=== PATIENT | female | born 1990 ===

== ENCOUNTER 2024-03-04 09:11 | Emergency (ER) | payer OTHER, SELFPAY ==
[2024-03-04 09:24] VITALS: BP 137/108
--- NOTE | 2024-03-04 10:45 | ED.GENMED ---
History of Present Illness
General
Chief Complaint: Flank Pain
Source: patient
Exam Limitations: none
Time Seen by Provider: 03/04/24 10:30
Nursing documentation reviewed up to this point in time: agreed with
History of Present Illness
History of Present Illness:
34-year-old female presenting to the emergency department with intermittent left-sided flank pain over the past few days. Has a history of kidney stones feels similar to previous. Associated nausea no vomiting no fevers. No significant urinary
changes.
Review of Systems
Review of Systems
Allergies reviewed?: Yes
All Other Systems: ROS reviewed and negative except as documented in HPI and ROS
Phy Exam
Physical Exam
Physical Exam:
GENERAL: Alert , in no apparent distress
EYE: pupils equal and reactive
NECK: Supple, no significant adenopathy.
ENT: o/p clr, mmm.
CARDIAC: Regular rate and rhythm .
LUNGS: Clear breath sounds bilaterally, no acute respiratory distress, no wheezes/rales/rhonchi
ABDOMEN: Soft, without focal tenderness, no r/g, no cvat
NEUROLOGICAL: Alert and oriented, no focal neuro deficits
SKIN: Warm and dry, skin intact.
MUSCULOSKELETAL: No edema, well perfused.
PSYCH: Normal and appropriate interaction.
Course
Orders/Labs/Results
Orders:
Orders
03/04/24 10:32
Test Result ONCE
03/04/24 10:44
CT Abd/pel Without Iv Or Oral Urgent
Comment:
Reason For Exam: left flank
03/04/24 11:22
Complete Blood Count/With Diff Urgent
Comprehensive Metabolic Panel Urgent
HCG, Serum Qualitative Screen Urgent
03/04/24 12:56
Urinalysis Reflex To Culture Urgent
Date Specimen was Collected: 03/04/24
Time Specimen was Collected: 12:54
Urine Microscopic Reflex Cult Urgent
Abnormal Lab Results
03/04/24 03/04/24
11:22 12:56
BUN 18 H mg/dl
(7-17)
Total Bilirubin 1.5 H mg/dl
(0.2-1.3)
Leukocyte Esterase Rfl Trace A
(Negative)
03/04/24 11:22
03/04/24 11:22
Vital Signs
Initial and Last Documented VS:
Initial Vital Signs
Temp Pulse Resp BP Pulse Ox
98.3 F 73 20 137/108 99
03/04/24 09:24 03/04/24 09:24 03/04/24 09:24 03/04/24 09:24 03/04/24 09:24
Last Documented Vital Signs
Temp Pulse Resp BP Pulse Ox
98.3 F 61 16 92/56 98
03/04/24 09:24 03/04/24 12:45 03/04/24 12:45 03/04/24 12:45 03/04/24 12:45
MDM/Problems Addressed
MDM/Problems Addressed:
34-year-old female presenting to the emergency department today with concerns of left-sided flank pain that feels similar to previous kidney stones. Here in no distress vital signs are normal. No reproducible discomfort. Plan for CT scan for
further assessment. CT scan without evidence of active stone labs unremarkable urinalysis without signs of infection. No evidence of any emergent pathology at this time stable for outpatient management return precautions given.
*Critical Care Note
Total Time (30-74mins, 75-104mins- exclusive of procedures): Not Applicable
ED Attending Note
-
Portions of this chart may have been created with voice recognition software.� Occasional wrong word or��sound alike� substitutions may have occurred due to the inherent limitations of voice recognition software.
Discharge Plan
Departure
Patient Disposition: Home (Routine Discharge)
Date of Disposition: 03/04/24
Time of Disposition: 13:19
Patient with high blood pressure during this ER visit?: No
Condition: Good
Covid-19: Not Applicable
Discharge Problem:
Acute flank pain
Instructions: Flank Pain (DC)
Prescriptions:
No Action
ferrous sulfate 325 mg (65 mg iron) Tablet
325 mg PO DAILY
prenat.vits,joellen,wnf-sbns-scfin Tablet
1 tab PO DAILY
acetaminophen 325 mg Tablet
650 mg PO Q4HPRN PRN (Reason: mild pain) Qty: 0 0RF
ibuprofen 600 mg Tablet
600 mg PO Q6HPRN PRN (Reason: cramps) Qty: 0 0RF
Referrals:
Juanjo Baeza MD [Family Provider] -
Activity Restrictions/Additional Instructions:
You came to the emergency department today with concerns of flank pain. Here you had a reassuring assessment. Please follow closely as an outpatient with your primary care doctor. Return to the emergency department for any worsening, new or
concerning symptoms.
Interventions
Interventions:
*Risk Screen - Suicide Last Done: 03/04/24 09:24
*General Assessment Last Done: 03/04/24 09:24
*Neglect/Abuse Screening Last Done: 03/04/24 09:24
*ED COVID-19 Vaccine History Last Done: 03/04/24 11:45
SW-Fqzffp-Atsdgeiusp Assessment Last Done: 03/04/24 11:45
ED-Female Genitourinary Assessment Last Done: 03/04/24 11:45
Discharge Date and Time
Print Language: MALTESE
[2024-03-04 11:35] LABS: % Basophils 0.6 % (0-2); % Eosinophils 0.9 % (0-6); % Immature Granulocytes 0.1 % (0-0.5); % Lymphocytes 25.8 % (20.5-51.1); % Neutrophils 66.6 % (42.2-75.2); Absolute Eosinophils 0.1 10^3/uL (0-0.7); Absolute Lymphocytes 1.8 10^3/uL (1.2-3.4); Absolute Monocytes 0.4 10^3/uL (0.1-0.6); Absolute Neutrophils 4.7 10^3/uL (1.4-6.5); Hematocrit 39.5 % (37.0-47.0); Hemoglobin 13.4 g/dL (12.0-16.0); Mean Corp Hgb Conc. 33.9 g/dL (33.0-37.0); Mean Corpuscular Hgb 30.5 pg (27.0-31.0); Mean Platelet Volume 10.2 fL (7.4-10.4); Nucleated Red Blood Cells % 0 %; Platelet Count 322 10^3/uL (130-400); Red Blood Cell Count 4.39 10^6/uL (4.20-5.40); Red Cell Dist. Width 12.3 % (11.5-14.5)
[2024-03-04 11:49] LABS: HCG, Serum Qualitative Screen Negative
[2024-03-04 12:00] LABS: ALT (SGPT) 15 U/L (0-35); AST (SGOT) 22 U/L (14-36); Albumin 4.5 g/dl (3.5-5.0); Alkaline Phosphatase 46 U/L (38-126); Blood Urea Nitrogen 18 mg/dl (7-17); Calcium 9.3 mg/dl (8.4-10.2); Carbon Dioxide 25 mmol/L (22-30); Chloride 103 mmol/L (98-107); Glucose 95 mg/dl (70-99); Potassium 4.3 mmol/L (3.5-5.1); Sodium 138 mmol/L (135-145); Total Bilirubin 1.5 mg/dl (0.2-1.3); Total Protein 7.5 g/dl (6.3-8.2); eGFR > 60.00
[2024-03-04 12:45] VITALS: BP 92/56
[2024-03-04 13:14] LABS: Urine Albumin Negative (Neg - Trace); Urine Bilirubin Negative (Negative); Urine Character Clear (Clear); Urine Color Yellow; Urine Glucose Negative (Negative); Urine Ketone Negative (Negative); Urine Leukocyte Trace (Negative); Urine Nitrite Negative (Negative); Urine Occult Blood Negative (Negative); Urine Urobilinogen Negative (Neg - 1+)
[2024-03-04 13:16] LABS: Urine Red Blood Cell 0-2 /HPF (0-2); Urine Squamous Cell 0-2 /LPF (Few)
[2024-03-04 13:17] LABS: Urine White Cell 0-2 /HPF (0-5)
== END 2024-03-04 13:30 | disposition home or self-care (01) ==
LOC: EMR 09:11
PROVIDERS: Physician Assistant; EMERGENCY PHYSICIAN Emergency Medicine; FAMILY PHYSICIAN Family Medicine
DX: R10.9 Unspecified abdominal pain (principal); R11.0 Nausea; Z87.442 Personal history of urinary calculi; Z91.018 Allergy to other foods
CPT/HCPCS: 99284; 74176; 80053; 81003; 81015; 84703; 85025

== ENCOUNTER 2024-09-28 21:23 | Emergency (ER) | payer OTHER, SELFPAY ==
[2024-09-28 21:26] VITALS: BP 120/85
--- NOTE | 2024-09-28 22:46 | ED.MUSCINJ ---
HPI-Injury
General
Chief Complaint: Musculo-Skeletal Complaint
Source: patient
Exam Limitations: none
Time Seen by Provider: 09/28/24 21:59
Nursing documentation reviewed up to this point in time: agreed with
History of Present Illness-Injury
Is this injury a work related problem?: No
Is pt an associate of [facility]/[place]?: No
Initial Injury comments:
Accidentally kicked wall. COmplains of bruising to right 5th toe. Injury occurred tonight.
Past History
Past History
ED Past Medical History: None
Review of Systems
Review of Systems
Allergies reviewed?: Yes
All Other Systems: ROS reviewed and negative except as documented in HPI and ROS
Constitutional: Reports no symptoms
Musculoskeletal: Reports joint pain (pain and bruising to right 5th toe)
Skin: Reports no symptoms
Neurological: Reports no symptoms
Psychiatric: Reports no symptoms
Musculoskeletal Injury Exam
Musculoskeletal Injury Exam
Right Fifth Toe:
Pain with Movement?: Moderate
Tender to palpation?: Moderate
Soft tissue swelling?: Mild
Contusion?: Moderate
Hematoma-local bleeding into tissue?: Mild
Strain- Sprain- Tear (Connective tissue injury)?: Mild
Crepitus with movement?: No
Joint instability?: No
Malalignment/deformity?: No
Range of motion: Limited
Distal skin color and temperature: normal-warm & good color
Capillary Refill: normal
Normal distal neurovascular exam?: Yes
Peripheral Pulses: posterior tibial (left): 3+ and dorsalis pedis (left): 3+
Phy Exam
General Physical Exam
General Presentation: well appearing and no apparent distress
General age: appears stated age
General Skin: warm and dry
General Habitus: normal
General Mental: alert
Musculoskeletal Exam
Musculoskeletal Exam: neuro vasc intact
Skin Exam
Skin Exam: normal color, warm/dry and no rash
Psychiatric Exam
Psychiatric Exam: normal mood/affect
Injury Course
Orders/Labs/Results
Orders:
Orders
09/28/24 21:28
CR Toe(s) Min 2 Vw Right Urgent
Comment:
Reason For Exam: pain and swelling
Indicate Which Toe:: Fifth
*Radiology
Radiology exam reviewed: radiology read reviewed
*Pulse Oximetry
SaO2: 98
Oxygen Mode of Delivery: Room air
Patient hypoxic: no
*Critical Care Note
Total Time (30-74mins, 75-104mins- exclusive of procedures): Not Applicable
ED Attending Note
-
Portions of this chart may have been created with voice recognition software.� Occasional wrong word or��sound alike� substitutions may have occurred due to the inherent limitations of voice recognition software.
Discharge Plan
Departure
Patient Disposition: Home (Routine Discharge)
Date of Disposition: 09/28/24
Time of Disposition: 22:06
Patient with high blood pressure during this ER visit?: No
Condition: Good
Covid-19: Not Applicable
Discharge Problem:
Contusion of toe
Instructions: Contusion (DC), Ibuprofen, Using Cold for Pain
Prescriptions:
No Action
ferrous sulfate 325 mg (65 mg iron) Tablet
325 mg PO DAILY
prenat.vits,joellen,ndb-nisa-blipn Tablet
1 tab PO DAILY
acetaminophen 325 mg Tablet
650 mg PO Q4HPRN PRN (Reason: mild pain) Qty: 0 0RF
ibuprofen 600 mg Tablet
600 mg PO Q6HPRN PRN (Reason: cramps) Qty: 0 0RF
Activity Restrictions/Additional Instructions:
Follow up with your family doctor.
Interventions
Interventions:
*Risk Screen - Suicide Last Done: 09/28/24 21:26
*General Assessment Last Done: 09/28/24 22:47
*Neglect/Abuse Screening Last Done: 09/28/24 21:26
*ED- Fall Risk Assessment Last Done: 09/28/24 22:47
*ED COVID-19 Vaccine History Last Done: 09/28/24 22:47
*Nursing Disposition Last Done: 09/28/24 22:47
ED-Musculoskeletal Assessment Last Done: 09/28/24 22:47
Discharge Date and Time
Print Language: GREEK
== END 2024-09-28 22:48 | disposition home or self-care (01) ==
LOC: EMR 21:23
PROVIDERS: EMERGENCY PHYSICIAN Emergency Medicine; FAMILY PHYSICIAN Family Medicine
DX: S90.121A Contusion of right lesser toe(s) without damage to nail, initial encounter (principal); W22.01XA Walked into wall, initial encounter
CPT/HCPCS: 99283; 73660